=== PATIENT | female | born 2000 | race Caucasian/White ===

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

== ENCOUNTER 2022-07-01 11:24 | Emergency (ER) | payer OTHER, SELFPAY ==
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
[2022-07-01 11:50] VITALS: BP 127/76; PULSE 92; RESP 18; TEMP 36.6; O2SAT 100
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
[2022-07-01] MEDS: ACETAMINOPHEN 500 MG TABLET 1000 MG PO (12:43)
== END 2022-07-01 14:06 | disposition home or self-care (01) ==
PROVIDERS: Emergency Provider Preventive Medicine Aerospace Medicine; PCP Nurse Practitioner Family
DX: S06.0X0A Concussion without loss of consciousness, initial encounter (principal); M54.2 Cervicalgia; M54.50 Low back pain, unspecified; V43.62XA Car passenger injured in collision with other type car in traffic accident, initial encounter
CPT/HCPCS: 72040; 72110; 99283; A9270

== ENCOUNTER 2022-07-10 12:09 | Emergency (ER) | payer OTHER, SELFPAY ==
--- NOTE | ~2022-07-10 | XR_ITS ---
EXAMINATION: XR finger 4th LT min 2V DATE: 07/10/2022 12:30 INDICATION: Left hand fourth digit injury and swelling. TECHNIQUE: 3 views of left hand fourth digit were obtained. COMPARISON: None. FINDINGS: Bone alignment is normal. There is a nondisplaced chip avulsion fracture of palmar base of fourth middle phalanx. Joint spaces are normal. There is soft tissue swelling of the fourth digit. IMPRESSION: 1. Nondisplaced chip avulsion fracture of palmar base of fourth middle phalanx. Reviewed, dictated and finalized at location A.
[2022-07-10 12:21] VITALS: BP 136/82; PULSE 77; RESP 16; TEMP 36.7; O2SAT 99
--- NOTE | 2022-07-10 12:49 | ED.UPPEXIN ---
HPI - Extremity Injury (Upper) General Chief Complaint: Extremity Injury, Upper Stated Complaint: injury to left finger Time Seen by Provider: 07/10/22 12:49 Source: patient Mode of arrival: ambulatory Limitations: no limitations History of Present Illness HPI narrative: 21-year-old female presented for complaint of left ring finger pain, swelling, and bruising after injury 2 days ago. She states she fell out of her bed and struck the finger on the floor. Denies numbness, tingling, weakness of the extremity. She has taken Tylenol for pain. Related Data Home Medications Medication Instructions Recorded Confirmed etonogestrel 68 mg subdermal 1 implant subdermal ONCE 04/03/21 04/03/21 implant (Nexplanon) Allergies Allergy/AdvReac Type Severity Reaction Status Date / Time No Known Allergies Allergy Verified 07/10/22 12:12 Review of Systems Review of Systems: CONSTITUTIONAL: Denies body aches, fever, chills EYES: Denies visual changes ENT: Denies rhinorrhea, congestion CARDIOVASCULAR: Denies chest pain, palpitations, or edema. RESPIRATORY: Denies cough or dyspnea. GASTROINTESTINAL: Denies abdominal pain, nausea, vomiting, or diarrhea. SKIN: Denies rash, itching, or wounds. MUSCULOSKELETAL: Per HPI NEUROLOGIC: Denies headache, numbness, tingling, or weakness. PSYCH: Denies depression or anxiety. All systems reviewed & are unremarkable except as noted in HPI and below PMFSH Past Medical History Medical History Anemia Social History Social History Smoking status: Never smoker Alcohol intake: never Substance use: never Substance use type: does not use Living arrangements: with family Gender identity (if verbalized by the patient): Female Sexual Orientation (if Verbalized by the Patient): Straight or Heterosexual Spiritual care concerns: No Comments At time of signature, I have reviewed and agree with nursing past medical, surgical, social and family history unless otherwise noted. Please see nursing chart for further information. There is no relevant family history pertinent to the presenting complaint Exam Narrative: GENERAL: Well-appearing, well-nourished, and in no acute distress. CHEST: Speaks in full sentences. No respiratory distress. HEART: Regular rate and rhythm. Normal and equal peripheral pulses. EXTREMITIES: Left 4th digit with moderate swelling and bruising to the proximal and middle phalanx and the PIP joint. Tender to PIP. Finger has normal strength and sensation, limited range of motion with flexion to approx 120 degrees at PIP, tolerates full extension, endorses pain with movement. No open wounds, or obvious deformity; alignment normal, pulse palpable and equal bilaterally, skin warm, dry, pink. Capillary refill less than 3 seconds. SKIN: Warm, dry, no rash. NEURO: Alert and oriented x3. PSYCH: Normal mood and affect Course Course Emergency Course: Patient is aware of diagnosis, understands and agrees to treatment plan. Anticipatory guidance given. Patient agrees to follow-up as directed and is aware of reasons to seek care at the emergency department. Portions of this record may have been created with voice recognition software Level of Care: Express Care Visit Vital Signs Vital signs: Vital Signs Temperature 98.1 F 07/10/22 12:21 Pulse Rate 77 07/10/22 12:21 Respiratory Rate 16 07/10/22 12:21 Blood Pressure 136/82 07/10/22 12:21 Pulse Oximetry 99 07/10/22 12:21 Oxygen Delivery Room Air 07/10/22 12:21 Temperature 98.1 F 07/10/22 12:21 Pulse Rate 77 07/10/22 12:21 Respiratory Rate 16 07/10/22 12:21 Blood Pressure 136/82 07/10/22 12:21 Pulse Oximetry 99 07/10/22 12:21 Oxygen Delivery Room Air 07/10/22 12:21 Reviewed Procedures Orthopedic Splinting/Casting Left 4th digit: Upp
== END 2022-07-10 13:00 | disposition home or self-care (01) ==
PROVIDERS: Emergency Provider Nurse Practitioner Family
DX: S62.655A Nondisplaced fracture of middle phalanx of left ring finger, initial encounter for closed fracture (principal); W06.XXXA Fall from bed, initial encounter
CPT/HCPCS: 29130; 73140; 99214; G0463

== ENCOUNTER 2022-12-20 03:10 | Day surgery (SDC) | payer BC, SELFPAY ==
--- NOTE | 2022-12-17 16:27 | P.HP_ITS ---
H&P: HPI History of Present Illness Date/Time: 12/17/22 16:27 Chief Complaint: Left-sided pelvic pain Narrative: This is a 22-year-old 0 admitted for laparoscopy and left cystectomy. She had previous left ovarian cystectomy with removal of a cystadenoma. Ultrasound shows 3cm cyst she is having severe pain. Risks and benefits of this procedure reviewed including minutes was , aspiration A1, bleeding, transfusion, perforation injury to bowel, bladder, ureters, or other internal organs with the need for open laparotomy. She with the ACOG handout entitled this laparoscopy. She had all questions answered. She asked to proceed. [facility] Past Medical History Medical History Anemia Social History Social History Smoking status: Never smoker Alcohol intake: never Substance use: never Substance use type: does not use Living arrangements: with family Gender identity (if verbalized by the patient): Female Sexual Orientation (if Verbalized by the Patient): Straight or Heterosexual Spiritual care concerns: No Meds Home Medications and Allergies Home Medications Medication Instructions Recorded Confirmed Type etonogestrel 68 mg subdermal 1 implant subdermal ONCE 04/03/21 04/03/21 History implant (Nexplanon) Allergies Allergy/AdvReac Type Severity Reaction Status Date / Time No Known Allergies Allergy Verified 07/10/22 12:12 Exam Const: General: cooperative, healthy appearing and comfortable Nutritional Appearance: average body habitus Orientation/consciousness: oriented to person, oriented to place and oriented to time Resp: Effort & Inspection: normal respiratory effort Cardio: Rate: regular rate Rhythm: regular rhythm Heart sounds: S1 normal heart sound present and S2 normal heart sound present GI: Inspection: normal to inspection : External Female Exam: normal external appearance Speculum Exam - Vagina: normal appearance of the vagina Speculum Exam - Cervix: normal appearance of the cervix Bimanual exam- vagina & uterus: soft Bimanual Exam- Adnexa, other: tender on the left Assessment and Plan Assessment and plan (1) Left ovarian cyst: Code(s): N83.202 - Unspecified ovarian cyst, left side Status: Acute (2) Pelvic pain: Code(s): R10.2 - Pelvic and perineal pain Status: Acute Plan Diagnostic laparoscopy with left cystectomy unlikely oophorectomy
[2022-12-18 09:49] VITALS: BMI 20.2
--- NOTE | 2022-12-18 09:52 | PC.NURSE ---
Report to the Outpatient Waiting Room, entrance under the green pavilion located off [facility], at time 2:30 on date 12/20/22. Planned Procedure Time: 4:30. Time changes happen often and if your time is changed the preop area will call you the afternoon before. - You and your visitor will be asked to self-screen and do not enter if you have any COVID symptoms. - A mask is optional within the hospital at this time. Patients may have clear liquids (water, carbonated beverages, clear teas, apple juice) until 3 hours prior to surgery with a maximum of 20 ounces. - No food from midnight until time of surgery Take the following medications with a SIP of water the morning of surgery: PAIN PILL IF NEEDED DO NOT STOP ANY OF YOUR OTHER PRESCRIPTION MEDICATIONS PRIOR TO SURGERY ?EXCEPT THE FOLLOWING Medications to discontinue per physician: N/A Date to take last dose: N/A Please no make-up, nail chinese, hairspray, perfume, deodorant, or body powder the day of surgery. No jewelry (including any body piercings) or valuables the day of surgery, leave them at home. Please take a shower or bath the night before, or the morning of, surgery with an antibacterial soap. Wear comfortable, loose fitting clothing. - Jewelry must be removed prior to entering the operating room. Rings and piercings that are not removed may be cut off. - The hospital will not accept responsibility for valuables. - Please leave all valuables, including medications, at home the day of surgery. If you are going home after surgery, a licensed lifter/driver must drive you home. - NO public transportation without another adult if you receive anesthesia. - We recommend that an adult stay with you for 24 hours following discharge. - We also recommend that you do not drive, make important decision, drink alcoholic beverages, or take any drugs that were not prescribed by your health care provider for at least 24 hours after your discharge time. Follow any additional instructions given to you from your surgeon. If you or anyone in your household have experienced Covid symptoms in the past week, please notify your surgeon or the nurse liaison at the phone number below for possible testing. Telephone instructions given to PT - ALLISON VALVERDE and asked if any additional questions and then verbalized understanding. Patient advised to call surgeon office or pre surgery nurse liaison [phone] if any additional questions.
[2022-12-20] VITALS (9 sets, daily range): BP systolic 102–129; BP diastolic 70–80; PULSE 58–89; RESP 10–19; TEMP 36.2–36.6; O2SAT 98–100
--- NOTE | 2022-12-20 06:45 | WPDHPUPDATE1 ---
History and Physical Update Update Date/Time: 12/20/22 06:45 History and Physical has been reviewed, including an updated exam of the patient. There are NO changes in the patient's condition. Risks, benefits, and alternatives have been discussed and questions answered. Patient agrees to proceed with procedure.
[2022-12-20] MEDS: ACETAMINOPHEN 500 MG TABLET 1000 MG PO (08:38)
[2022-12-20] MEDS: SCOPOLAMINE 1.5 MG PATCH TRANSDERM (08:39)
--- NOTE | 2022-12-20 09:00 | WPDANESEPPF ---
Anes - Initial Pre Proc Eval Procedure: Operation Date: 12/20/22 10:30 Proposed Procedures p Laparoscopic Left Ovarian Cystectomy, and Removal of Nexplanon Device - Caleb Alfredo MD Date/Time: 12/20/22 09:00 Surgeon: Caleb Alfredo MD Pre Op Diagnosis: pelvic, L side pain, cyst, irregular bleeding Patient Data Age: 22 Gender: F Height: 1.63 m Weight: 54.7 kg Allergies Allergy/AdvReac Type Severity Reaction Status Date / Time No Known Allergies Allergy Verified 12/20/22 08:32 Home Medications Medication Instructions Recorded Confirmed Type etonogestrel 68 mg subdermal 1 implant subdermal ONCE 04/03/21 12/18/22 History implant (Nexplanon) hydrocodone 5 mg-acetaminophen 325 1 tablet PO Q6H PRN Pain 12/18/22 12/18/22 History mg tablet hydrocodone 5 mg-acetaminophen 325 1 tablet PO Q4H PRN pain #20 tabs 12/20/22 Rx mg tablet Patient hx anesthesia problems: none Family hx anesthesia problems: none Results Review: All pre-operative results and documents have been reviewed as part of the pre-operative evaluation. [facility] Past Medical History Medical History Anemia Social History Social History Smoking status: Never smoker Alcohol intake: never Substance use: never Substance use type: does not use Living arrangements: alone Gender identity (if verbalized by the patient): Female Sexual Orientation (if Verbalized by the Patient): Straight or Heterosexual Spiritual care concerns: No Anes - Eval Final PreProcedure Day of Procedure 12/20/22 09:00 Patient weight: normal Heart: regular rate and rhythm Lungs: clear to auscultation Airway: Mallampati scale class II Neurological: alert and oriented Last oral intake: >/= 8 hours ASA classification: I Emergent: no Anesthetic plan: proceed Anesthesia type and monitoring: general ETT and standard monitoring Results Review: All pre-operative results and documents have been reviewed as part of the pre-operative evaluation. Informed Consent: The patient's anesthetic plan and its attendant risks and benefits were discussed with the patient/family/POA. Questions were solicited and answers provided to the satisfaction of the patient/family/POA.
[2022-12-20] MEDS: LACTATED RINGERS 1,000 ML 30 ML IV CONT (09:06)
[2022-12-20] MEDS: KETOROLAC 15 MG/ML VIAL (*BKC) IV PUSH (09:06)
--- NOTE | 2022-12-20 10:01 | SUR.PREOP ---
Resting without needs or complaints.
--- NOTE | 2022-12-20 11:12 | W.PM.PROC2 ---
Procedure Note - Detailed Date of Procedure 12/20/22 Pre-op Diagnosis pelvic, L side pain, cyst, irregular bleeding Post-op Diagnosis Other (Pelvic pain/pelvic adhesions/right ovarian cyst/desires removal of Nexplanon) Procedure Performed Laparoscopy with lysis of adhesions/destruction of right ovarian cyst/removal of Nexplanon Surgeon Caleb Alfredo MD Anesthesia General Indications Such 22-year-old female with pelvic pain especially to the left side with suspected left ovarian cyst. She also desired removal of her Nexplanon Findings Actual large right ovarian cyst was noted. The left ovary appeared within normal limits. The colon was markedly adherent to left pelvic sidewall. Normal-appearing uterus and tubes otherwise. Description of Procedure Patient was prepped and draped in the normal sterile fashion placed in dorsal lithotomy position. Under excellent general trach anesthesia weighted speculum placed in posterior fornix vagina. Anterior lip of the cervix grasped with single-tooth tenaculum. Chavez's cannula inserted the cervix and attached to the single-tooth. This was to be used later for uterine manipulation. After emptying the bladder clear urine the weighted speculum was removed and the gloves were changed. An infraumbilical incision made the Veress needle passed in the abdomen. Abdomen filled with CO2 gas to 15 of. The 5mm trocar advanced under direct visualization assuring no injury. Patient placed in Trendelenburg and a suprapubic incision made. 5mm trocar advanced under direct visualization assuring no injury. The above findings were noted. Using sharp dissection the colon was markedly adherent to the left lateral sidewall this was sharply dissected away from the pelvic sidewall. The underlying left ovary was actually small and normal in size. Large right ovarian cyst was noted this was opened in linear fashion and drained clear urine. Irrigation undertaken until clear and the appendix gallbladder and liver edge appeared within normal limits and photo documentation undertaken. The instruments were then withdrawn after and gas removed from the abdomen. The incisions closed with 4 Monocryl and glue attention was turned to the left antecubital area where the Nexplanon was placed. A 11 blade was used as a stab wound and it was removed through that in 1 piece this was put back together with glue blood loss for the entire procedure was 5cc. All sponge, needle, instrument counts were correct. There were no immediate complications Estimated Blood Loss 5 Drains No Packing No Pathology None sent Complications No immediate complications Condition Stable Disposition PACU
--- NOTE | 2022-12-20 11:29 | SUR.OPER ---
PREOP MARKED KRISTIN NEXPLANON SITE/ABLE TO PALPATE. LEFT PELVIC SIDE. NEXPLANON REMOVED AND INTACT/TO DISPOSE OF PER SURGEON.
[2022-12-20] MEDS: fentaNYL CITRATE INJ (*CRX) 100 MCG/2 ML VIAL 25 MCG IV PUSH ×4 (11:42→12:16)
[2022-12-20] MEDS: oxyCODONE HCL (*CRX) 5 MG TAB IR PO (12:55)
== END 2022-12-20 13:32 | disposition home or self-care (01) ==
PROVIDERS: PCP Nurse Practitioner Family; Visit Provider Obstetrics & Gynecology
PROC: (CPT 49320; principal; 2022-12-20 10:30)
DX: N83.202 Unspecified ovarian cyst, left side (principal); D64.9 Anemia, unspecified; Z79.891 Long term (current) use of opiate analgesic; Z30.46 Encounter for surveillance of implantable subdermal contraceptive
CPT/HCPCS: 58662; 11982; 36415; 86850; 86900; 86901; A9270; J0330; J1885; J2250; J2405; J2704; J3010; J7030; J7120

== ENCOUNTER 2024-03-13 11:15 | Emergency (ER) | payer BC, SELFPAY ==
[2024-03-13 11:40] VITALS: BP 119/79; PULSE 110; RESP 18; O2SAT 100
--- NOTE | 2024-03-13 11:57 | ED.URI ---
HPI - URI/Sore Throat General Chief Complaint: Upper Respiratory Infection Stated Complaint: Sinus/Cough Source: patient and RN notes reviewed Mode of arrival: ambulatory Limitations: no limitations History of Present Illness HPI Narrative: 23-year-old female presented complaint of cough, body aches, sinus pressure/congestion, nausea, fever/chills. onset 3 days. Denies sob, wheezing, letheargy, v/d. 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 MD elicited complaint: cough Related Data Home Medications ?Medication ?Instructions ?Recorded ?Confirmed ?Last Taken ?Type hydrocodone 5 mg-acetaminophen 325 1 tablet PO Q6H PRN Pain 12/18/22 12/18/22 Unknown History mg tablet Allergies Allergy/AdvReac Type Severity Reaction Status Date / Time No Known Allergies Allergy Verified 03/13/24 11:30 Review of Systems Review of Systems: per HPI [facility] Past Medical History Medical History Anemia Social History Social History Smoking status: Never smoker Alcohol intake: never Substance use: never Substance use type: does not use Living arrangements: alone Gender identity (if verbalized by the patient): Female Sexual Orientation (if Verbalized by the Patient): Straight or Heterosexual Spiritual care concerns: No Exam Narrative: GENERAL: mildly Ill-appearing, nontoxic no acute distress. EYES: PERRLA, conjunctivae clear ENT: Mucous membranes moist. TM pearly haro with dull light reflex bilaterally; no tragal tenderness. Oropharynx erythematous without lesions or exudate, no drooling, no hoarseness, no trismus, uvula midline. No tripod positioning, muffled voice, soft palate or pharyngeal wall bulging NECK: Supple. No lymphadenopathy CHEST: Clear to auscultation, breath sounds equal. No wheezing, rhonchi, rales, or stridor. No respiratory distress, speaks in full sentences. HEART: Regular rate and rhythm. No murmur heard. SKIN: Warm, dry, no rash. NEURO: Alert and oriented x3. PSYCH: Normal mood and affect Course Course Emergency Course: Patient is aware of diagnosis, understands and agrees to treatment plan. Anticipatory guidance given. Patient agrees to follow-up as directed and is aware of reasons to seek care at the emergency department. Portions of this record may have been created with voice recognition software Level of Care: Express Care Visit Vital Signs Vital signs: Vital Signs Pulse Rate 110 H 03/13/24 11:40 Respiratory Rate 18 03/13/24 11:40 Blood Pressure 119/79 03/13/24 11:40 Pulse Oximetry 100 03/13/24 11:40 Oxygen Delivery Room Air 03/13/24 11:40 Pulse Rate 110 H 03/13/24 11:40 Respiratory Rate 18 03/13/24 11:40 Blood Pressure 119/79 03/13/24 11:40 Pulse Oximetry 100 03/13/24 11:40 Oxygen Delivery Room Air 03/13/24 11:40 reviewed MDM - URI/Sore Throat MDM Narrative Medical decision making narrative: POS flu. Discussed physical exam findings. Advised supportive measures and signs/symptoms to go to the ER. Pt is appropriate for outpt treatment and f/u. Differential Diagnosis Differential diagnosis: Likely upper respiratory infection, sinusitis and viral infection Discharge Plan Discharge Clinical Impression: Influenza Patient Disposition: Home, Self-Care Condition: Stable Instructions: Antibiotic Form, Influenza (ED) Additional Instructions: Influenza positive You should avoid crowds until you are fever free for 24 hours without the use of fever reducing medications, or the symptoms are improved Rest. Drink plenty of fluids. Tylenol 1000mg every 8 hours as needed for pain/fever Recommend Flonase spray and Zyrtec (or Claritin/Kristi) for sinus pressure/congestion over the counter Cough syrup may cause drowsiness; avoid driving or take it at night time. Follow up with your primary care provider as needed Go to the ER for worsening symptoms or concerns Patient Language: Tristanian Prescriptions: New prednisone 20 mg tablet 40 mg PO DAILY 3 Days Qty: 6 0RF No Action Nexplanon 68 mg Implant 1 implant SUBDERMAL ONCE hydrocodone-acetaminophen 5-325 mg tablet 1 tablet PO Q6H PRN (Reason: Pain) Follow-up/Referrals: ANGELES,ANTONIO VEGA [Primary Care Provider] - Stand Alone Forms: Work/School Release IP Time of Disposition: 11:59
[2024-03-13 12:02] LABS: EDCOVIDSCREEN Negative (Negative); EDINFLUASCREEN Positive (Negative); EDINFLUBSCREEN Negative (Negative)
== END 2024-03-13 12:05 | disposition home or self-care (01) ==
PROVIDERS: Emergency Provider Nurse Practitioner Family; PCP Nurse Practitioner Family
DX: J10.1 Influenza due to other identified influenza virus with other respiratory manifestations (principal); Z20.822 Contact with and (suspected) exposure to COVID-19
CPT/HCPCS: 87426; 87804; 99213; G0463